=== PATIENT | female | born 1990 | race African-American/Black ===

== ENCOUNTER 2016-10-16 17:38 | Emergency (ER) | payer OTHER ==
--- NOTE | ~2016-10-16 | CT71 ---
[facility] A Service of [facility] RADIOLOGY TEXT RESULTS PATIENT: SANDRA STRICKLAND LOCATION: [facility] : 91 UNIT #: [id number] AGE: [address]: Luis Hernandez MD SEX: F ORDER DR: [id number] [facility] [place], [place] [address] [id number] MR#: [id number] #: [id number] NAME: SANDRA STRICKLAND : 1990 SEX: F STUDY DATE/TIME: 10/16/2016 17:20 UNIT: [facility] ROOM: STUDY DESCRIPTION: CT Head Wo Contrast Attending Physician: Luis Hernandez M.D. Ordering Physician: Luis Hernandez M.D. Primary Care Physician: Primary Care Physician No MEDICAL IMAGING REPORT This report is preliminary unless electronic signature is present EXAM CT head without IV contrast COMPARISON None. INDICATIONS 26-year-old female with history of epilepsy, post seizure today. The patient fell and hit her head, now with swelling above the right orbit. FINDINGS This CT exam was performed with one or more of the following radiation dose reduction techniques: Automatic exposure control, adjustment of mA and/or kV according to patient size, and iterative reconstruction. Subcutaneous hematoma is seen in the right preseptal soft tissues extending over the anterior frontal bone. The globe appears intact. No evidence of intraorbital extension of the hematoma. No evidence of acute fracture. Mastoid air cells, middle ears and visualized paranasal sinuses are well aerated. Normal cerebral volume. No mass effect. No abnormal extraaxial fluid collection. No acute intracranial hemorrhage. No evidence of acute ischemia. IMPRESSION Subcutaneous hematoma in the right preseptal soft tissues extending above the right orbit. No evidence of injury to the globe. No radiopaque foreign body. No acute fracture or acute intracranial abnormality. Dictated by... Josué Flores M.D. THIS IS AN ELECTRONICALLY VERIFIED REPORT Josué Flores M.D. at 10/20/2016 8:26 AM [facility] A Service of [facility] RADIOLOGY TEXT RESULTS PATIENT: SANDRA STRICKLAND LOCATION: [facility] : 91 UNIT #: [id number] AGE: [address]: Luis Hernandez MD SEX: F ORDER DR: Norma TD: 10/16/2016 21:44 JOB #: [id number] MEDICAL IMAGING REPORT Page 1 of 1 COPY
[2016-10-16 17:14] LABS: BASOPHIL# 0.1 X10e3 (0-0.3); DIFF IND NO; EOSINOPHIL# 0.1 X10e3 (0-0.7); EOSINOPHIL% 1.4 % (0.0-7.0); HEMATOCRIT 38.9 % (35.0-45.0); HEMOGLOBIN 12.3 gm/dL (12.0-16.0); LYMPHOCYTE# 1.9 X10e3 (1.0-3.5); LYMPHOCYTE% 38.2 % (17.0-45.0); MEAN CELL VOLUME 84.4 FL (83-96); MEAN CORPUSCULAR HEMOGLOBIN 26.8 PG (28-34); MEAN CORPUSCULAR HGB CONC 31.7 g/dL (30-36); MEAN PLATELET VOLUME 7.9 FL (6.5-11.5); MONOCYTE# 0.2 X10e3 (0-1.0); MONOCYTE% 4.8 % (3.0-12.0); NEUTROPHIL# 2.7 X10e3 (1.5-7.1); NEUTROPHIL% 54.6 % (40-75); PLATELET COUNT 225 X10e3 (140-420); RED BLOOD COUNT 4.61 X10e (3.90-5.30); RED CELL DISTRIBUTION WIDTH 14.8 % (11.0-15.5)
[2016-10-16 17:42] LABS: BLOOD UREA NITROGEN 15 mg/dL (9-23); BUN/CREATININE RATIO 21.42; CALCIUM SERUM 8.8 mg/dL (8.4-10.2); CARBON DIOXIDE 26 mmol/L (22-31); CHLORIDE 106 mmol/L (100-111); CREATININE SERUM 0.7 mg/dL (0.6-1.4); DILANTIN (PHENYTOIN) <2.5 ug/mL (10.0-20.0); GLOM FILT RATE Estimated 139.6 mL/min (>60); GLUCOSE FASTING 84 mg/dL (70-110); POTASSIUM 3.6 mmol/L (3.5-5.1); SODIUM 138 mmol/L (135-145)
== END 2016-10-16 18:50 | disposition home or self-care (01) ==
LOC: CED 17:38
PROVIDERS: Emergency Medicine
DX: G40.909 Epilepsy, unspecified, not intractable, without status epilepticus (principal); S00.83XA Contusion of other part of head, initial encounter; J45.909 Unspecified asthma, uncomplicated; Z79.899 Other long term (current) drug therapy; F17.200 Nicotine dependence, unspecified, uncomplicated; X58.XXXA Exposure to other specified factors, initial encounter
CPT/HCPCS: 36415; 70450; 80048; 80185; 82947; 85025; 96374; 99284; J1953